=== PATIENT | male | born 1990 | race African-American/Black ===

== ENCOUNTER 2020-05-02 12:41 | Emergency (ER) | payer MEDICAID ==
[~2020-05-02] VITALS: Ht 182.9 cm; Wt 95.3 kg
--- NOTE | 2020-05-02 12:45 | NUR ---
Pt walked in to ER with c/o sore throat x 4 days. Reports having a tele-med appt and being diagnosed with strep throat and treated with amoxicillin. V/S stable, pt is afebrile. Currently sitting at bedside, will continue to monitor
[2020-05-02 12:51] VITALS: BP_SYST 141
--- NOTE | 2020-05-02 13:00 | NUR ---
ER Dr. Solomon at bedside examining patient.
--- NOTE | 2020-05-02 13:14 | NUR ---
Nasal swab obtained to r/o covid as per MD orders, pt tolerated well. Sample sent to lab
--- NOTE | 2020-05-02 13:40 | NUR ---
Lab in tent with patient for blood draw.
--- NOTE | 2020-05-02 13:50 | NUR ---
Patient transported to radiology via wheelchair, accompanied by staff.
[2020-05-02 13:55] LABS: BASOPHILS % (AUTO) 0.6 % (0.0-2.0); EOSINOPHILS # (AUTO) 0.2 K/uL (0.0-0.4); HEMATOCRIT 42.1 % (36-54); HEMOGLOBIN 14.5 g/dL (14.0-18.0); LYMPHOCYTES % (AUTO) 30.7 % (20.5-51.5); MEAN CORPUSCULAR HEMOGLOBIN 32 pg (27-31); MEAN CORPUSCULAR HGB CONC 34 % (32-36); MEAN CORPUSCULAR VOLUME 93 fL (79.0-98.0); MONOCYTES # (AUTO) 0.4 K/uL (0.0-1.0); MONOCYTES % (AUTO) 6.4 % (1.7-9.3); NEUTROPHILS # (AUTO) 3.8 K/uL (1.8-7.7); NEUTROPHILS % (AUTO) 59.3 % (40.0-70.0); PLATELET COUNT (AUTO) 382 K/uL (130-430); RED BLOOD CELL COUNT(AUTO) 4.55 MIL/uL (4.2-6.2); RED CELL DISTRIBUTION WIDTH 13.8 % (9.0-15.0); WHITE BLOOD COUNT (AUTO) 6.5 K/uL (4.8-10.8)
[2020-05-02 14:05] LABS: CALCIUM 8.9 mg/dL (8.4-11.0); CREATININE 1.07 mg/dL (0.55-1.30)
[2020-05-02 14:10] LABS: ALBUMIN 4.1 g/dL (3.4-4.8); INR 1.1 (0.80-1.20); PROTHROMBIN TIME 11.6 SECS (9.5-12.5); TOTAL BILIRUBIN 0.5 mg/dL (0.0-1.0)
[2020-05-02 14:35] VITALS: BP_SYST 132
--- NOTE | 2020-05-02 15:14 | NUR ---
Patient given written and verbal discharge instructions and verbalizes understanding. ER MD discussed with patient the results and treatment provided. Patient in stable condition. ID arm band removed. Rx of LORATINE, BENADRYL given. Patient educated on pain management and to follow up with PMD. Pain Scale 0/10 Opportunity for questions provided and answered. Medication side effect fact sheet provided.
== END 2020-05-02 14:35 | disposition home or self-care (01) ==
LOC: SED 12:41
DX: J30.9 Allergic rhinitis, unspecified (principal); Z20.828 Contact with and (suspected) exposure to other viral communicable diseases
CPT/HCPCS: 36415; 70490; 71250-TC; 76376; 80053; 85025; 85610-TC; 85730-TC; 99285